=== PATIENT | female | born 1980 | race Hispanic/Latino ===

== ENCOUNTER 2017-05-13 16:35 | Emergency (ER) | payer OTHER ==
[2017-05-13 17:05] LABS: APPEARANCE,URINE Clear (CLEAR); BILIRUBIN,URINE Negative (NEGATIVE); COLOR,URINE Yellow (YELLOW); GLUCOSE, URINE (UA) Negative (NEGATIVE); KETONES,URINE Negative (NEGATIVE); LEUKOCYTE ESTERASE ,URINE Trace (NEGATIVE); NITRATE,URINE Negative (NEGATIVE); OCCULT BLOOD,URINE Negative (NEGATIVE); PROTEIN,URINE Negative (NEGATIVE); UROBILINOGEN,URINE 0.2 mg/dL (0.2-1.0)
[2017-05-13 17:06] LABS: HCG,QUAL RESULT NEGATIVE (NEGATIVE)
[2017-05-13] MEDS ORDERED: DICYCLOMINE HCL 10 MG/ML 2ML AMP IM ONE (17:09)
[2017-05-13 17:13] LABS: BACTERIA,URINE None Seen /HPF (None Seen); RBC,URINE None Seen /HPF (0-1); WBC,URINE None Seen /HPF (0-1)
== END 2017-05-13 17:44 | disposition home or self-care (01) ==
LOC: EDH 16:35
DX: K64.9 Unspecified hemorrhoids (principal); R19.7 Diarrhea, unspecified
CPT/HCPCS: 81001; 81025; 96372; 99284; J0500

== ENCOUNTER 2017-09-19 05:31 | Emergency (ER) | payer OTHER ==
[2017-09-19 05:51] LABS: APPEARANCE,URINE CLEAR (CLEAR); BILIRUBIN,URINE Negative (NEGATIVE); COLOR,URINE Yellow (YELLOW); GLUCOSE, URINE (UA) Negative (NEGATIVE); KETONES,URINE Negative (NEGATIVE); LEUKOCYTE ESTERASE ,URINE Negative (NEGATIVE); NITRATE,URINE Negative (NEGATIVE); OCCULT BLOOD,URINE Moderate (NEGATIVE); PH,URINE 5.5 (5.0-8.0); PROTEIN,URINE Negative (NEGATIVE); UROBILINOGEN,URINE 0.2 mg/dL (0.2-1.0)
[2017-09-19 05:55] LABS: BACTERIA,URINE None Seen /HPF (None Seen); MUCUS,URINE Few LPF (None Seen); SQUAMOUS EPITHELIAL CELL,UR Few /HPF (0-2); WBC,URINE 0-1 /HPF (0-1)
[2017-09-19 05:56] LABS: HCG,QUAL RESULT NEGATIVE (NEGATIVE)
[2017-09-19 06:09] LABS: BASOPHILS % (AUTO) 0.3 % (0.0-5.0); EOSINOPHILS % (AUTO) 0.3 % (0.0-8.0); HEMATOCRIT 38.2 % (36-48); LYMPHOCYTES % (AUTO) 7.6 % (21.0-51.0); MEAN CORPUSCULAR HEMOGLOBIN 31.7 pg (27.0-33.0); MEAN CORPUSCULAR HGB CONC 35.5 g/dL (32.0-36.0); MEAN CORPUSCULAR VOLUME 89.3 fL (79-99); MONOCYTES % (AUTO) 5.2 % (3.0-13.0); NEUTROPHILS % (AUTO) 86.6 % (40.0-77.0); PLATELET COUNT (AUTO) 263 K/uL (130-400); RED BLOOD CELL COUNT(AUTO) 4.28 MIL/uL (4.00-5.50); RED CELL DISTRIBUTION WIDTH 12.4 % (11.0-15.5)
[2017-09-19] MEDS ORDERED: DiphenhydrAMINE HCL 50 MG/ML VIAL ONE (06:12)
[2017-09-19] MEDS ORDERED: KETOROLAC TROMETHAMINE 30MG/ML ONE (06:13)
[2017-09-19 06:19] LABS: CREATININE 0.7 mg/dL (0.5-1.5); POTASSIUM 3.7 mmol/L (3.5-5.1)
[2017-09-19 06:27] LABS: ALBUMIN 3.5 g/dL (3.5-5.0); BILIRUBIN,TOTAL 0.3 mg/dL (0.2-1.0); TOTAL PROTEIN, SERUM 6.9 g/dL (6.0-8.3)
[2017-09-19] MEDS ORDERED: DOXYCYCLINE HYCLATE 100 MG TABLET PO ONE (06:51)
== END 2017-09-19 08:05 | disposition home or self-care (01) ==
LOC: EDH 05:31
DX: B34.9 Viral infection, unspecified (principal); R10.9 Unspecified abdominal pain; M54.9 Dorsalgia, unspecified; M25.572 Pain in left ankle and joints of left foot; M25.571 Pain in right ankle and joints of right foot; R51 Headache; R20.2 Paresthesia of skin
CPT/HCPCS: 36415; 80053; 81001; 81025; 82150; 83690; 85025; 86757; 87804 ×2; 96374; 96375; 99284; J1200; J1885

== ENCOUNTER 2024-11-01 13:19 | Emergency (ER) | payer OTHER ==
[~2024-11-01] VITALS: Ht 162.6 cm; Wt 72.6 kg
--- NOTE | 2024-11-01 13:27 | ERN ---
ED Note History of Present Illness Stated Complaint: RT SHOULDER AND NECK PAIN Chief Complaint: Shoulder Injury/Pain Time Seen by MD: 13:22 Dictation: PATIENT IS A 44-YEAR-OLD FEMALE HERE WITH NON TRAUMA RIGHT POSTERIOR SHOULDER PAIN WHILE SHE WAS FEELING OUT COOL PAPERWORK WITH HER MOTHER YESTERDAY AT HOME. 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 NO HISTORY OF PRIOR INJURY SURGERIES NO CHEST PAIN NO REFERRED PAIN. TAKE IBUPROFEN AND 05:00 IN THE MORNING. STATES SHE HAS NO PRIMARY CARE DOCTOR ADDITIONALLY HER BLOOD PRESSURE 152/101 IN TRIAGE, SHE STATES I DRANK SOME COFFEE THIS MORNING. Allergies: Coded Allergies: No Known Allergies (Unverified Allergy, Unknown, 11/01/24) Past Medical History Past Medical History: No Pertinent History Surgical History: Other History: Not Applicable RN Note Reviewed/Agreed w/PFSH: Yes Review of System Dictation CONSTITUTIONAL: NEGATIVE EXCEPT FOR HPI HEAD/FACE: NEGATIVE EXCEPT FOR HPI EENT: NEGATIVE EXCEPT FOR HPI RESPIRATORY: NEGATIVE EXCEPT FOR HPI GASTROINTESTINAL/ABDOMINAL: NEGATIVE EXCEPT FOR HPI GENITOURINARY: NEGATIVE EXCEPT FOR HPI MUSCULOSKELETAL: NEGATIVE EXCEPT FOR HPI RIGHT POSTERIOR SHOULDER PAIN INTEGUMENTARY: NEGATIVE EXCEPT FOR HPI NEUROLOGICAL/PSYCH: NEGATIVE EXCEPT FOR HPI HEMATOLOGIC/LYMPHATIC: NEGATIVE EXCEPT FOR HPI ALL SYSTEMS NEGATIVE, EXCEPT NOTED ABOVE. 13 POINT REVIEW OF SYSTEMS ASSESSED AND ALL NEGATIVE EXCEPT FOR ABOVE. Initial Vital Sign VS Vital Signs Date Time Temp Pulse Resp B/P (MAP) Pulse Ox O2 Delivery O2 Flow Rate FiO2 11/01/24 13:21 98.4 87 20 152/91 97 Room Air 11/01/24 13:28 0 21 Physical Exam Dictation VITAL SIGNS REVIEWED GENERAL APPEARANCE: ALERT, ORIENTED X 3, MODERATE ACUTE DISTRESS, WELL DEVELOPED, NOURISHED. HEAD AND FACE: NON-TRAUMATIC. EYES: PERRL, PINK CONJUNCTIVAS, EYELID NO TRAUMA, ANTERIOR CHAMBER WITH ARCUS SENILIS. EARS: PINNAS INTACT AND NO SIGNS OF TRAUMA OR ERYTHEMA EAR CANALS CLEAR AND NO DISCHARGE TM NO ERYTHEMA NOSE: NO DISCHARGE, NO BLEEDING. OROPHARYNX: MOUTH NORMAL, TONGUE PINK, PHARYNX CLEAR,NO ERYTHEMA, TONSILS NO EXUDATES, NO ABSCESSES NOTED, MUCOUS MEMBRANE MOIST NECK: SUPPLE, NON-TENDER, NO THYROMEGALY, NO MASSES, NO JVD, NO BRUITS BREAST:DEFERRED CHEST:NO TENDERNESS, NO CREPITUS, NO PARADOXICAL MOVEMENT, NO RETRACTIONS LUNGS:CLEAR, WELL-VENTILATED, SYMMETRIC, NO RALES, NO WHEEZING, NO RHONCHI, NO STRIDOR, GOOD BREATH SOUNDS BILATERALLY HEART: REGULAR RATE, REGULAR RHYTHM, NO MURMUR, NO GALLOPS VASCULAR: NO PERIPHERAL EDEMA, ABDOMEN: SOFT, POSITIVE BOWEL SOUNDS, NONDISTENDED, NO GUARDING, NONTENDER, NO REBOUND, NO MASSES NO HEPATOMEGALY, NO SPLENOMEGALY, NO SALAZAR'S SIGN, NO HERNIAS. RECTAL: DEFERRED GENITAL: DEFERRED NEUROLOGICAL: NORMAL SPEECH, MOTOR FUNCTION INTACT, SENSORY FUNCTION INTACT MUSCULOSKELETAL: NECK NONTENDER, FULL RANGE OF MOTION, BACK NONTENDER, FULL RANGE OF MOTION, EXTREMITIES: LOCALIZED TENDERNESS TO RIGHT POSTERIOR SHOULDER THE SCAPULA. DECREASED RANGE OF MOTION SECONDARY TO PAIN. SKIN INTACT SKIN: COLOR PINK, DRY, NO TURGOR, NO RASH, NO LACERATIONS, NO ABRASIONS, NO CONTUSIONS. LYMPHATIC: DEFERRED Results (Laboratory/Radiology) Laboratory/Radiology RIGHT SHOULDER X-RAY NEGATIVE Labs Reviewed?: Yes ED Course ED Course Orders Procedure Category Date Status Time Ibuprofen 800 Mg Tab PHA 11/01/24 Complete (Motrin) 13:30 Dexamethasone 4mg/Ml PHA 11/01/24 Complete 1ml Vial (Dexametha 13:30 Cyclobenzaprine Hcl PHA 11/01/24 Complete (Cyclobenzaprine Hcl 13:30 Shoulder Comp 2+Vws Rt RAD 11/01/24 Taken 13:24 Current Medications Medications (Trade) Dose Ordered Sig/Marta Route PRN Reason Start Time Stop Time Status Last Admin Dose Admin Cyclobenzaprine HCl (Cyclobenzaprine HCl) 10 mg ONCE ONCE PO 11/01/24 13:30 11/01/24 13:31 DC 11/01/24 14:04 Dexamethasone Sodium Phosphate (dexaMETHasone 4MG/ML 1ML VIAL) 8 mg ONCE ONCE IM 11/01/24 13:30 11/01/24 13:31 DC 11/01/24 14:04 Ibuprofen (moTRIN) 800 mg ONCE ONCE PO 11/01/24 13:30 11/01/24 13:31 DC 11/01/24 14:04 Vital Signs Date Time Temp Pulse Resp B/P (MAP) Pulse Ox O2 Delivery O2 Flow Rate FiO2 11/01/24 13:28 98.2 85 16 150/88 98 Room Air* 0 21 11/01/24 13:21 98.4 87 20 152/91 97 Room Air Medical Decision Making [facility] 1430/MEDICAL DECISION-MAKING BASED ON PAIN MANAGEMENT AND X-RAY RIGHT SHOULDER. X-RAY NEGATIVE PATIENT DISCHARGED HOME WITH A IBUPROFEN AND FLEXERIL TOLD NO WEIGHT-BEARING RIGHT ARM UNTIL CLEARED BY ORTHOPEDICS GIVEN THE NAME OF DR. TARYN ESTRADA DX & DISP Disposition: Discharge Departure Impression: Primary Impression: Strain of right shoulder Condition: Stable Scripts Ibuprofen (Ibuprofen 800 mg Tab) 800 Mg Tab 800 MG PO Q8H PRN for fever or pain, #30 TAB 0 Refills Prov: FUNMI ROSALES INSURANCE MANAGER 11/01/24 Cyclobenzaprine HCl (Cyclobenzaprine HCl) 10 Mg Tablet 1 TAB PO TID for muscle spasms for 10 Days, #30 TAB 0 Refills Prov: FUNMI ROSALES INSURANCE MANAGER 11/01/24 Additional Instructions: FOLLOW-UP WITH PRIMARY CARE PROVIDER IN 1 TO 2 DAYS. TAKE MEDICATIONS DIRECTED HERE IN THE EMERGENCY ROOM. OKAY TO CONTINUE HOME MEDICATIONS UNLESS OTHERWISE DISCUSSED DURING YOUR VISIT IN THE EMERGENCY ROOM TODAY. RETURN TO YOUR NEAREST EMERGENCY ROOM IF SYMPTOMS WORSEN OR IF THERE IS NO IMPROVEMENT. CALL 911 IF YOU NEED IMMEDIATE ASSISTANCE. TAKE TYLENOL OR MOTRIN [id number] NEEDED AND IF NO CONTRAINDICATIONS ARE PRESENT. INCREASE ORAL HYDRATION. A WOUND CULTURE OR URINE CULTURE WAS ORDERED HERE IN THE EMERGENCY ROOM DEPARTMENT PLEASE FOLLOW-UP WITH PRIMARY CARE PROVIDER AND ADVISE THEM TO GET REPEAT PORTS FROM OUR FACILITY. IF YOU HAD ANY DOMO WRAP/SPLINTS THAT WERE APPLIED HERE, PLEASE DO NOT REMOVE THEM UNTIL YOU SEE YOUR PRIMARY CARE OR SPECIALTY. TAKE IBUPROFEN AND FLEXERIL EVERY 8 HOURS WITH FOOD FOR THE NEXT THREE DAYS. WARM COMPRESSES TO SHOULDER THREE TO 4 TIMES A DAY. NO REPETITIVE MOVEMENTS OR LIFTING WITH RIGHT ARM UNTIL CLEARED BY ORTHOPEDIC SURGERY, CALL FOR AN APPOINTMENT TODAY. Referrals: PRAMOD MUSA MD (PCP) TARYN ESTRADA MD Time of Disposition: 14:28 I have reviewed the case, and I agree with, Diagnosis and Plan FUNMI ROSALES NP Nov 01, 2024 13:27
[2024-11-01 13:28] VITALS: BP 150/88; PULSE 85; RESP 16; TEMP 98.3; O2SAT 98
[2024-11-01] MEDS: CYCLOBENZAPRINE HCL 10 MG TABLET PO ONE (14:04)
[2024-11-01] MEDS ORDERED: CYCL-309 PO (14:30)
[2024-11-01] MEDS ORDERED: IBUP-2077 PO (14:30)
--- NOTE | 2024-11-01 14:53 | HMCIMG ---
EXAM: CR right Shoulder, 3 View. CLINICAL HISTORY: RIGHT POSTERIOR SHOULDER PAIN NON TRAUMA ONSET YESTERDAY COMPARISON: None provided. FINDINGS: BONES: No acute fracture or aggressive appearing osseous lesion. JOINTS: No dislocation. The joint spaces are normal. SOFT TISSUES: The soft tissues are unremarkable. IMPRESSION: No acute abnormality evident on examination of the right shoulder. No acute fracture or dislocation. /[place]
== END 2024-11-01 14:37 | disposition home or self-care (01) ==
LOC: EDH 13:19
DX: S46.911A Strain of unspecified muscle, fascia and tendon at shoulder and upper arm level, right arm, initial encounter (principal); X58.XXXA Exposure to other specified factors, initial encounter; Y93.89 Activity, other specified; Y92.89 Other specified places as the place of occurrence of the external cause; Y99.8 Other external cause status
CPT/HCPCS: 99283; 73030; 96372; J1100